=== PATIENT | female | born 1965 | race Caucasian/White ===

== ENCOUNTER 2016-07-13 12:06 | Emergency (ER) | payer BC ==
[~2016-07-13] VITALS: Ht 170.2 cm; Wt 54.0 kg
[2016-07-13] MEDS ORDERED: PredniSONE 20mg tab ORAL ONE (12:45)
[2016-07-13] MEDS ORDERED: Bacitracin Oint UD TOPIC ONE (12:45)
[2016-07-13] MEDS ORDERED: TdaP Vaccine 0.5ml Syr IM ONE (12:45)
--- NOTE | 2016-07-13 12:47 | Emergency Room Report ---
History of Present Illness General Chief Complaint: Skin Rash/Abscess Source: Patient (Zuleika Mcmullen) Present Illness HPI 50-year-old female presents to emergency Department complaining of pain swelling and erythema to the left middle finger x2 days. Patient states that 2 days ago she was stung by a bee and her finger has had progressive swelling and new onset erythema. Patient denies bleeding patient's issues not up-to-date with her tetanus vaccination. She states she applied camphor gel with no relief. Pt denies wheezing, SOB, difficulty breathing or swelling of the lips, tongue or airway. pt denies itching at this time. Patient denies nausea, vomiting, fevers or chills. Denies CP, Palpitations, LOC, AMS, dizziness, Changes in Vision, Sensation, paresthesias, or a sudden severe headache. (Zuleika Mcmullen) Allergies: Coded Allergies: CEPHALEXIN (Verified Allergy, Unknown, 07/13/16) Patient History Past Medical History: see triage record Past Surgical History: none Pertinent Family History: none Now: No Reviewed Nursing Documentation: PMH: Agreed, PSxH: Agreed (Zuleika Mcmullen) Nursing Documentation-PMH Past Medical History: No Stated History (Zuleika Mcmullen) Review of Systems All Other Systems: negative except mentioned in HPI (Zuleika Mcmullen) Physical Exam Vital Signs Date Time Temp Pulse Resp B/P Pulse Ox O2 Delivery O2 Flow Rate FiO2 07/13/16 12:16 98.8 73 16 122/81 97 Room Air Sp02 EP Interpretation: reviewed, normal General Appearance: no apparent distress, alert, GCS 15, non-toxic Head: normocephalic, atraumatic Eyes: bilateral eye PERRL, bilateral eye normal inspection ENT: hearing grossly normal, normal pharynx, no angioedema, normal voice Neck: full range of motion, supple/symm/no masses Respiratory: chest non-tender, lungs clear, normal breath sounds, speaking full sentences Cardiovascular #1: regular rate, rhythm, no edema Musculoskeletal: back normal, gait/station normal, normal range of motion, inflammation - Left middle finger, with bullae noted at the primary insect sting site. , swelling - Left Middle Finger, other - mild erythema noted. Neurologic: alert, oriented x3, responsive, motor strength/tone normal, sensory intact, speech normal Psychiatric: judgement/insight normal, memory normal, mood/affect normal, no suicidal/homicidal ideation Skin: normal color, warm/dry, well hydrated, other - swelling and bullae noted on the Left middle finger, with bullae noted at the primary insect sting site. Lymphatic: no adenopathy (Zuleika Mcmullen) Medical Decision Making PA Attestation Dr. Waldron is my supervising Physician whom patient management has been discussed with. (Zuleika Mcmullen) Diagnostic Impression: Primary Impression: Insect bite or sting Additional Impression: Local reaction to insect sting Qualified Codes: T63.484A - Toxic effect of venom of other arthropod, undetermined, initial encounter ER Course 50-year-old female presents to emergency Department complaining of pain swelling and erythema to the left middle finger x2 days. Patient states that 2 days ago she was stung by a bee and her finger has had progressive swelling and new onset erythema. Patient denies bleeding patient's issues not up-to-date with her tetanus vaccination. She states she applied camphor gel with no relief. Patient denies nausea, vomiting, fevers or chills. Ddx considered but are not limited to cellulitis, scabies, insect bites, tic bites, spider bites, contact dermatitis, Drug reaction, allergic reaction, fungal infection, lice. Vital signs: are WNL, pt. is afebrile H&PE are most consistent with localized reaction with insect bite/sting, and suspicious for early cellulitis. ORDERS: none required at this time, the diagnosis is clinical ED INTERVENTIONS: -Prednisone 60mg PO -Tetanus vaccination is administered - 600mg Motrin PO - Bacitracin is applied by technical marketing engineer. - Left arm Sling applied by technical marketing engineer. Pt. remains neurovascularly intact. DISCHARGE: At this time pt. is stable for d/c to home. Will provide printed patient care instructions, and any necessary prescriptions. Care plan and follow up instructions have been discussed with the patient prior to discharge. (Zuleika Mcmullen) ER Course I examined this patient and agree with treatment plan. (Daniel Waldron M.D.) Last Vital Signs Date Time Temp Pulse Resp B/P Pulse Ox O2 Delivery O2 Flow Rate FiO2 07/13/16 12:16 98.8 73 16 122/81 97 Room Air (Zuleika Mcmullen) Disposition: HOME, SELF-CARE Condition: Stable Scripts Acetaminophen* (TYLENOL EXTRA STRENGTH*) 500 Mg Tablet 500 MG ORAL Q6H, #30 TAB 0 Refills Prov: Zuleika Mcmullen 07/13/16 Doxycycline Hyclate* (VIBRAMYCIN*) 100 Mg Capsule 100 MG ORAL EVERY 12 HOURS for 7 Days, #14 CAP 0 Refills Prov: Zuleika Mcmullen 07/13/16 Prednisone* (PREDNISONE*) 20 Mg Tablet 40 MG ORAL DAILY for 5 Days, TAB Prov: Zuleika Mcmullen 07/13/16 Patient Instructions: Bee, Wasp, or Hornet Sting Additional Instructions: Take medications as directed. Follow up with PCP in 3-5 days Return sooner to ED if new symptoms occur, or current symptoms become worse. - Please note that this Emergency Department Report was dictated using [employer] reporter technology software, occasionally this can lead to erroneous entry secondary to interpretation by the dictation equipment. Zuleika Mcmullen Jul 13, 2016 12:47 Daniel Waldron M.D. Jul 14, 2016 01:25
[2016-07-13] MEDS ORDERED: TYLENOL EXTRA500 MG ORAL (13:10)
[2016-07-13] MEDS ORDERED: PREDNISONE20 MG ORAL (13:10)
[2016-07-13] MEDS ORDERED: VIBRAMYCIN100 MG ORAL (13:10)
[2016-07-13 13:27] VITALS: BP 114/74
== END 2016-07-13 13:32 | disposition home or self-care (01) ==
LOC: EMR 12:35
DX: M79.645 Pain in left finger(s) (principal); T63.484A Toxic effect of venom of other arthropod, undetermined, initial encounter; Y92.9 Unspecified place or not applicable; Z23 Encounter for immunization
CPT/HCPCS: 29240; 90471; 90715; 99283